=== PATIENT | female | born 1955 | race Caucasian/White ===

== ENCOUNTER → 2017-06-07 | Outpatient (CLI) | payer OTHER, BC ==
[~2017-06-07] MED LIST: AMLO2.5T PO; ATOR10TA9 PO; ATOR40TA PO
== END | disposition home or self-care (01) ==
LOC: RAD 09:26
PROVIDERS: ATTEND Nurse Practitioner Primary Care
DX: L03.012 Cellulitis of left finger (principal); R60.0 Localized edema